=== PATIENT | female | born 1985 | race African-American/Black ===

== ENCOUNTER 2018-06-24 11:17 | Emergency (ER) | payer SELFPAY ==
[2018-06-24 11:30] VITALS: BMI 25.0
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
[2018-06-24] MEDS ORDERED: DIPHTH,PERTUSS(ACELL),TET 0.5 ML DISP.SYRIN IM ONE (12:28)
[2018-06-24] MEDS ORDERED: ONDANSETRON HCL 4 MG/5 ML PO ONE (12:36)
[2018-06-24] MEDS ORDERED: KETOROLAC TROMETHAMINE 30 MG/1 ML VIAL IM ONE (12:37)
[2018-06-24] MEDS ORDERED: KETOROLAC TROMETHAMINE 30 MG/1 ML VIAL ONE (13:07)
[2018-06-24] MEDS ORDERED: ONDANSETRON *ODT* 4 MG TABLET ONE (13:07)
[2018-06-24] MEDS ORDERED: LIDOCAINE HCL 2% (20ML MULTI-DOSE VIAL) NR ONE (14:04)
[2018-06-24] MEDS ORDERED: CEPHALEXIN MONOHYDRATE 500 MG CAPSULE (UD) PO ONE (14:49)
[2018-06-24] MEDS ORDERED: CEPHALEXIN MONOHYDRATE 500 MG CAPSULE (UD) ONE (15:01)
[2018-06-24 15:07] VITALS: BP 130/79; PULSE 63; TEMP 98.1
== END 2018-06-24 15:16 | disposition home or self-care (01) ==
LOC: JER 11:17
PROC: 3E0233Z Introduction of Anti-inflammatory into Muscle, Percutaneous Approach (ICD-10-PCS; principal; 2018-06-24)
PROC: 3E0234Z Introduction of Serum, Toxoid and Vaccine into Muscle, Percutaneous Approach (ICD-10-PCS; 2018-06-24)
PROC: 0JQP0ZZ Repair Left Lower Leg Subcutaneous Tissue and Fascia, Open Approach (ICD-10-PCS; 2018-06-24)
DX: S81.812A Laceration without foreign body, left lower leg, initial encounter (principal); F10.10 Alcohol abuse, uncomplicated; Y35.893A Legal intervention involving other specified means, suspect injured, initial encounter; Y93.89 Activity, other specified; Y92.89 Other specified places as the place of occurrence of the external cause; Y99.8 Other external cause status
CPT/HCPCS: 73590-TC-LT-FY; 84703; 90715; 99281-25